=== PATIENT | male | born 1985 | race Caucasian/White ===

== ENCOUNTER 2020-01-07 22:04 | Emergency (ER) | payer BC ==
[~2020-01-07] VITALS: Ht 170.2 cm; Wt 81.8 kg
[2020-01-07 22:09] VITALS: BP 111/63
[2020-01-07] MEDS ORDERED: TETanus/Pertussis (Acell)/Diphther VAC/PF (Tdap-Adult) 0.5ml syringe IMVAC ONE (22:45)
[2020-01-07] MEDS ORDERED: LIDOcaine 1% 30ml preserv. free vial IJ ONE (22:45)
[2020-01-07] MEDS ORDERED: CEPH-572 PO (23:22)
[2020-01-08] MEDS ORDERED: bacitracin 15gm ointment TP ONE (00:15)
[2020-01-08] MEDS ORDERED: acetaminophen 325mg tablet PO ONE (00:15)
== END 2020-01-08 00:41 | disposition home or self-care (01) ==
LOC: ER 22:05
DX: S61.210A Laceration without foreign body of right index finger without damage to nail, initial encounter (principal); Z79.2 Long term (current) use of antibiotics; X58.XXXA Exposure to other specified factors, initial encounter; Y93.89 Activity, other specified; Y92.89 Other specified places as the place of occurrence of the external cause; Y99.8 Other external cause status
CPT/HCPCS: 12001; 90471; 90715; 99283